=== PATIENT | female | born 1995 | race American Indian/Alaskan Native ===

== ENCOUNTER 2020-12-19 18:25 | Emergency (ER) | payer BC ==
[~2020-12-19] VITALS: Ht 157.5 cm; Wt 80.8 kg
[2020-12-19 19:07] LABS: URINE HCG NEGATIVE (NEG)
[2020-12-19 19:11] LABS: BASOPHILS # (AUTO) 0.1 X10'3 (0-0.2); BASOPHILS % (AUTO) 0.8 % (0-1); EOSINOPHILS # (AUTO) 0.3 X10'3 (0-0.9); EOSINOPHILS % (AUTO) 4.1 % (0-6); HEMOGLOBIN 14.6 g/dl (12.0-16.0); LYMPHOCYTES # (AUTO) 2.2 X10'3 (1.1-4.8); LYMPHOCYTES % (AUTO) 29.2 % (21-51); MEAN CORPUSCULAR HEMOGLOBIN 27.5 PG (27.0-31.0); MEAN CORPUSCULAR HGB CONC 33.1 g/dL (33.0-36.5); MEAN CORPUSCULAR VOLUME 83.2 FL (78-98); MEAN PLATELET VOLUME 7.7 FL (7.4-10.4); MONOCYTES # (AUTO) 0.5 X10'3 (0-0.9); MONOCYTES % (AUTO) 6.2 % (2-12); NEUTROPHILS # (AUTO) 4.5 X10'3 (1.8-7.7); NEUTROPHILS % (AUTO) 59.7 % (42-75); PLATELET COUNT 334 X10'3 (140-440); RED CELL DISTRIBUTION WIDTH 14.2 % (11.5-14.5); WHITE BLOOD COUNT 7.5 X10'3 (4.5-11.0)
[2020-12-19 19:13] LABS: ALANINE AMINOTRANSFERASE 97 U/L (12-78); ALBUMIN 3.8 G/DL (3.4-5.0); ALBUMIN/GLOBULIN RATIO 0.9 (1.1-1.5); ALKALINE PHOSPHATASE 118 IU/L (46-116); ANION GAP 10 (8-16); ASPARTATE AMINO TRANSFERASE 58 U/L (10-37); BILIRUBIN,TOTAL 0.4 MG/DL (0.1-1.0); BLOOD UREA NITROGEN 15 MG/DL (7-18); BUN/CREATININE RATIO 14.9 (6.6-38.0); CALCIUM 8.7 MG/DL (8.5-10.1); CHLORIDE 104 MMOL/L (99-107); CREATININE 1.01 MG/DL (0.40-0.90); GLUCOSE 104 MG/DL (70-104); LIPASE 77 U/L (73-393); POTASSIUM 3.6 MMOL/L (3.5-5.1); SODIUM 140 MMOL/L (135-145); TOTAL PROTEIN 7.9 G/DL (6.4-8.2); eGFR 66 ML/MIN
[2020-12-19 19:13] LABS: CLARITY,URINE CLEAR (Clear); COLOR,URINE YELLOW (Yellow); GLUCOSE, URINE NEGATIVE (Neg); KETONES,URINE NEGATIVE (Neg); LEUKOCYTE ESTERASE ,URINE NEGATIVE (Neg); NITRITES, URINE NEGATIVE (Neg); OCCULT BLOOD,URINE MODERATE (Neg); PROTEIN,URINE 30 mg/dl (Neg)
[2020-12-19 19:28] LABS: UA COLLECTION TYPE CLN CATCH MIDSTREAM
[2020-12-19 19:29] LABS: BACTERIA,URINE NONE SEEN /HPF (Neg); RBC,URINE 0-2 /HPF (0-2); SQUAMOUS EPITHELIAL CELL,UR MODERATE /LPF (FEW); WBC,URINE NONE SEEN /HPF (0-4)
[2020-12-19] MEDS ORDERED: ondansetron 4mg rapidly disintigrating tab PO ONE (19:35)
[2020-12-19] MEDS ORDERED: ketorolac tromethamine 15mg/ml inj. IM ONE (19:35)
[2020-12-19 21:48] VITALS: BP 125/86
[2020-12-20] MEDS ORDERED: NO HOME MEDS (09:10)
[2020-12-20] MEDS ORDERED: sevoflurane 250ml liquid IH ONE (13:08)
[2020-12-20] MEDS ORDERED: fentaNYL/PF 50MCG/1 ML 2ML syringe ONE (13:10)
[2020-12-20] MEDS ORDERED: midazolam 2 mg/2 ml injection ONE (13:10)
[2020-12-20] MEDS ORDERED: propofol inj 20 ML IV ONE (13:11)
[2020-12-20] MEDS ORDERED: rocuronium 10mg/ml inj IV ONE (13:11)
[2020-12-20] MEDS ORDERED: ondansetron/PF 4mg/2ml inj ONE (14:13)
[2020-12-20] MEDS ORDERED: dexamethasone sod phosphate 4mg/ml inj. ONE (14:13)
[2020-12-20] MEDS ORDERED: neostigmine methylsulfate 1 MG/ML 10ml vial ONE (14:20)
[2020-12-20] MEDS ORDERED: glycopyrrolate 0.2mg/ml inj ONE (14:20)
[2020-12-20] MEDS ORDERED: meperidine/PF 25mg/ml syringe ONE (15:40)
== END 2020-12-19 21:49 | disposition home or self-care (01) ==
LOC: ER 18:25
DX: K80.20 Calculus of gallbladder without cholecystitis without obstruction (principal); R11.0 Nausea; R10.11 Right upper quadrant pain
CPT/HCPCS: 36415; 76700; 80053; 81001; 81025; 83690; 85025; 96372; 99284; J1885; J1100; J2175; J2250; J2405; J2704; J2710; J3010; J3490

== ENCOUNTER 2020-12-20 06:00 | Inpatient (IN) | payer BC ==
[~2020-12-20] VITALS: Ht 157.5 cm; Wt 77.8 kg
[2020-12-20] VITALS (17 sets, daily range): BP systolic 122–161; BP diastolic 62–101
[2020-12-20 07:20] LABS: CLARITY,URINE CLOUDY (Clear); COLOR,URINE YELLOW (Yellow); GLUCOSE, URINE NEGATIVE (Neg); KETONES,URINE NEGATIVE (Neg); LEUKOCYTE ESTERASE ,URINE NEGATIVE (Neg); NITRITES, URINE NEGATIVE (Neg); OCCULT BLOOD,URINE LARGE (Neg); PROTEIN,URINE 30 mg/dl (Neg)
[2020-12-20] MEDS ORDERED: piperacillin/tazo 3.375gm/50ml 50 ML IV ONE (07:20)
[2020-12-20] MEDS ORDERED: normal saline 1000ML IV soln IVB ONE (07:20)
[2020-12-20] MEDS ORDERED: normal saline 1000ml 1,000 ML IV ONE (07:20)
[2020-12-20 07:21] LABS: BASOPHILS % (AUTO) 0.5 % (0-1); EOSINOPHILS # (AUTO) 0.1 X10'3 (0-0.9); EOSINOPHILS % (AUTO) 1.3 % (0-6); HEMATOCRIT 43.6 % (35.0-45.0); HEMOGLOBIN 14.7 g/dl (12.0-16.0); LYMPHOCYTES # (AUTO) 0.8 X10'3 (1.1-4.8); LYMPHOCYTES % (AUTO) 11.9 % (21-51); MEAN CORPUSCULAR HEMOGLOBIN 28.1 PG (27.0-31.0); MEAN CORPUSCULAR HGB CONC 33.6 g/dL (33.0-36.5); MEAN CORPUSCULAR VOLUME 83.8 FL (78-98); MEAN PLATELET VOLUME 7.7 FL (7.4-10.4); MONOCYTES # (AUTO) 0.5 X10'3 (0-0.9); MONOCYTES % (AUTO) 6.8 % (2-12); NEUTROPHILS # (AUTO) 5.6 X10'3 (1.8-7.7); NEUTROPHILS % (AUTO) 79.5 % (42-75); PLATELET COUNT 336 X10'3 (140-440); RED BLOOD COUNT 5.21 X10'6 (4.20-5.60); RED CELL DISTRIBUTION WIDTH 14.4 % (11.5-14.5); WHITE BLOOD COUNT 7.1 X10'3 (4.5-11.0)
[2020-12-20 07:22] LABS: UA COLLECTION TYPE CLN CATCH MIDSTREAM
[2020-12-20 07:23] LABS: URINE HCG NEGATIVE (NEG)
[2020-12-20 07:26] LABS: MUCUS STRANDS MODERATE /LPF (Neg); SQUAMOUS EPITHELIAL CELL,UR MODERATE /LPF (FEW)
[2020-12-20 07:27] LABS: BACTERIA,URINE 1+ /HPF (Neg); RBC,URINE 50-100 /HPF (0-2); WBC,URINE 0-4 /HPF (0-4)
[2020-12-20 07:33] LABS: ALANINE AMINOTRANSFERASE 919 U/L (12-78); ALBUMIN 3.8 G/DL (3.4-5.0); ALKALINE PHOSPHATASE 187 IU/L (46-116); ANION GAP 8 (8-16); ASPARTATE AMINO TRANSFERASE 851 U/L (10-37); BILIRUBIN,TOTAL 1.7 MG/DL (0.1-1.0); BLOOD UREA NITROGEN 14 MG/DL (7-18); BUN/CREATININE RATIO 14.6 (6.6-38.0); CALCIUM 8.7 MG/DL (8.5-10.1); CHLORIDE 106 MMOL/L (99-107); CREATININE 0.96 MG/DL (0.40-0.90); GLUCOSE 104 MG/DL (70-104); LIPASE 92 U/L (73-393); POTASSIUM 4.2 MMOL/L (3.5-5.1); SODIUM 140 MMOL/L (135-145); TOTAL CARBON DIOXIDE 25.9 MMOL/L (24-32); TOTAL PROTEIN 7.8 G/DL (6.4-8.2); eGFR 70 ML/MIN
[2020-12-20] MEDS ORDERED: mag hydrox/Alum hydrox/simeth 30ml oral suspension PO PRN (08:10)
[2020-12-20] MEDS ORDERED: morphine 2 MG/ML inj. syringe IV PRN ×2 (08:10→13:40)
[2020-12-20] MEDS ORDERED: diphenhydrAMINE 25mg capsule PO PRN (08:10)
[2020-12-20] MEDS ORDERED: magnesium Cl slow-release 64mg tablet PO PRN (08:10)
[2020-12-20] MEDS: normal saline 1000ml 1,000 ML IV SCH ×3 (08:10→19:47)
[2020-12-20] MEDS ORDERED: bisacodyl 10mg suppository rectal RC PRN (08:10)
[2020-12-20] MEDS ORDERED: ondansetron/PF 4mg/2ml inj IV PRN ×2 (08:10→13:40)
[2020-12-20] MEDS ORDERED: potassium Cl 40MEQ/1/2NS 520ml 520 ML IV PRN ×2 (08:10)
[2020-12-20] MEDS ORDERED: acetaminophen 650mg rectal suppository RC PRN (08:10)
[2020-12-20] MEDS ORDERED: magnesium 2GM in 50ml NS 50 ML IV PRN (08:10)
[2020-12-20] MEDS ORDERED: magnesium 4gm in 100ml NS 100 ML IV PRN (08:10)
[2020-12-20] MEDS ORDERED: magnesium hydroxide 30ml (MOM) UD suspension PO PRN (08:10)
[2020-12-20] MEDS ORDERED: potassium Cl 20 mEq SR tablet PO PRN (08:10)
[2020-12-20] MEDS ORDERED: HYDROcodone/acetaminophen 5mg/325mg tablet PO PRN (08:10)
[2020-12-20] MEDS ORDERED: acetaminophen 325mg tablet PO PRN ×2 (08:10)
[2020-12-20 08:39] LABS: HEMOGLOBIN A1C 5.5 % (4.5-6.2)
[2020-12-20] MEDS ORDERED: NO HOME MEDS (09:10)
[2020-12-20] MEDS ORDERED: BUPIVAcaine/PF 2.5 mg/ml (0.25%) 30ml vial ONE (11:07)
[2020-12-20] MEDS ORDERED: ceFOXitin 2GM-NS 50mL ADDVANT. 50 ML IV ONE (13:15)
[2020-12-20] MEDS ORDERED: ceFAZolin 1000mg inj ONE (13:33)
[2020-12-20] MEDS ORDERED: proCHLORperazine 10 MG/2 ml inj IV PRN (13:40)
[2020-12-20] MEDS ORDERED: morphine 4 MG/ML inj SYRINge IV PRN (13:40)
[2020-12-20] MEDS ORDERED: meperidine/PF 25mg/ml syringe IV PRN ×3 (13:40)
[2020-12-20] MEDS ORDERED: ringers solution, lacted 1,000 ML IV SCH (13:40)
--- NOTE | 2020-12-20 14:45 | NUR ---
Received from OR via BED , accompanied by Anesthesiologist DR GOTTI and report given by Anesthesiolgist. PATIENT WAKING UP, DENIES PAIN, V/S WNL, CSM INTACT, BANDAIDS TO ABDOMEN CDI. SCD ON. 20G PIV RUE
[2020-12-20] MEDS: piperacillin/tazo 3.375gm/50ml 50 ML IV SCH (16:00)
--- NOTE | 2020-12-20 16:05 | NUR ---
PATIENT SLEEPY BUT AWAKE AND ORIENTED X4, DENIES PAIN, V/S WNL, CSM INTACT, BANDAIDS TO ABDOMEN CDI. SCD ON. 20G PIV RUE. TAKEN TO 347A WITH ALL BELONGING S AND HOOKED UP TO MONIORS IN ROOM AND REPORT GIVEN TO [employer] WHO HAS TAKEN OVER PATIENT CARE.
[2020-12-20] MEDS: morphine 2 MG/ML inj. syringe IV PRN (18:00)
--- NOTE | 2020-12-20 18:36 | NUR ---
Problems reprioritized. Patient report given, questions answered & plan of care reviewed with BANG Morejon.
--- NOTE | 2020-12-20 18:36 | NUR ---
Patient in room [facility]. I have received report from DOMI CUENCA and had the opportunity to ask questions and assume patient care.
[2020-12-20] MEDS: heparin, porcine 5000 units/ml vial SQ SCH (19:47)
[2020-12-20] MEDS: K and/or MAG REPLACEMENT MC SCH (19:55)
[2020-12-21] VITALS: BP 131/71
[2020-12-21] MEDS: piperacillin/tazo 3.375gm/50ml 50 ML IV SCH ×3 (00:51→15:35)
[2020-12-21] MEDS: morphine 2 MG/ML inj. syringe IV PRN ×4 (03:03→20:14)
[2020-12-21 04:08] VITALS: BP 119/73
--- NOTE | 2020-12-21 06:15 | NUR ---
Problems reprioritized. Patient report given, questions answered & plan of care reviewed with DOMI CUENCA.
--- NOTE | 2020-12-21 06:26 | NUR ---
Patient in room [facility]. I have received report from BANG Morejon and had the opportunity to ask questions and assume patient care.
[2020-12-21 06:34] LABS: BASOPHILS % (AUTO) 0.2 % (0-1); EOSINOPHILS % (AUTO) 0 % (0-6); HEMATOCRIT 38.3 % (35.0-45.0); LYMPHOCYTES # (AUTO) 1.1 X10'3 (1.1-4.8); LYMPHOCYTES % (AUTO) 13.8 % (21-51); MEAN CORPUSCULAR HEMOGLOBIN 28.1 PG (27.0-31.0); MEAN CORPUSCULAR VOLUME 82.8 FL (78-98); MEAN PLATELET VOLUME 7.9 FL (7.4-10.4); MONOCYTES # (AUTO) 0.6 X10'3 (0-0.9); MONOCYTES % (AUTO) 7.4 % (2-12); NEUTROPHILS # (AUTO) 6.4 X10'3 (1.8-7.7); NEUTROPHILS % (AUTO) 78.6 % (42-75); PLATELET COUNT 307 X10'3 (140-440); RED BLOOD COUNT 4.63 X10'6 (4.20-5.60); RED CELL DISTRIBUTION WIDTH 14.6 % (11.5-14.5); WHITE BLOOD COUNT 8.1 X10'3 (4.5-11.0)
[2020-12-21 06:55] LABS: ALANINE AMINOTRANSFERASE 849 U/L (12-78); ALBUMIN/GLOBULIN RATIO 0.8 (1.1-1.5); ALKALINE PHOSPHATASE 193 IU/L (46-116); ANION GAP 10 (8-16); ASPARTATE AMINO TRANSFERASE 396 U/L (10-37); BILIRUBIN,TOTAL 2.9 MG/DL (0.1-1.0); BLOOD UREA NITROGEN 6 MG/DL (7-18); BUN/CREATININE RATIO 8.8 (6.6-38.0); CALCIUM 8.1 MG/DL (8.5-10.1); CHLORIDE 106 MMOL/L (99-107); CHOL/HDL RATIO 2.1 (0.00-4.99); CHOLESTEROL 121 MG/DL (0-200); CREATININE 0.68 MG/DL (0.40-0.90); GLUCOSE 114 MG/DL (70-104); HDL CHOLESTEROL 57 MG/DL (35-60); LDL CHOLESTEROL 59 MG/DL (50-100); MAGNESIUM 1.9 MG/DL (1.5-2.4); POTASSIUM 3.7 MMOL/L (3.5-5.1); SODIUM 139 MMOL/L (135-145); TOTAL CARBON DIOXIDE 23.4 MMOL/L (24-32); TOTAL PROTEIN 6.6 G/DL (6.4-8.2); TRIGLYCERIDES 80 MG/DL (20-135); eGFR > 90 ML/MIN
[2020-12-21 07:00] VITALS: BP 126/74
[2020-12-21] MEDS: K and/or MAG REPLACEMENT MC SCH ×2 (07:09→19:58)
[2020-12-21] MEDS: heparin, porcine 5000 units/ml vial SQ SCH ×2 (08:02→20:18)
[2020-12-21] MEDS: normal saline 1000ml 1,000 ML IV SCH ×2 (10:06→20:16)
[2020-12-21 11:19] VITALS: BP 128/87
[2020-12-21] MEDS ORDERED: AMOX-419 PO (12:02)
[2020-12-21] MEDS ORDERED: LACT1CAP55 PO (12:02)
[2020-12-21] MEDS ORDERED: HYDR-3965 PO (12:02)
[2020-12-21 18:00] VITALS: BP 120/77
--- NOTE | 2020-12-21 18:03 | NUR ---
Problems reprioritized. Patient report given, questions answered & plan of care reviewed with BANG Morejon.
--- NOTE | 2020-12-21 18:40 | NUR ---
Patient in room [facility]. I have received report from DOMI CUENCA and had the opportunity to ask questions and assume patient care.
[2020-12-21] MEDS: lactobacillus rhamnosus 10,000 MMU CELLS/CAPSULE PO SCH (20:17)
[2020-12-22] VITALS (16 sets, daily range): BP systolic 112–165; BP diastolic 67–108
[2020-12-22] MEDS: morphine 2 MG/ML inj. syringe IV PRN ×4 (00:29→13:44)
[2020-12-22] MEDS: piperacillin/tazo 3.375gm/50ml 50 ML IV SCH ×3 (00:33→16:22)
[2020-12-22] MEDS: HYDROcodone/acetaminophen 10/325mg tab PO PRN ×2 (03:35→07:49)
[2020-12-22 06:23] LABS: BASOPHILS % (AUTO) 0.7 % (0-1); EOSINOPHILS # (AUTO) 0.1 X10'3 (0-0.9); EOSINOPHILS % (AUTO) 2.1 % (0-6); HEMOGLOBIN 12.6 g/dl (12.0-16.0); LYMPHOCYTES # (AUTO) 1.3 X10'3 (1.1-4.8); LYMPHOCYTES % (AUTO) 18.5 % (21-51); MEAN CORPUSCULAR HEMOGLOBIN 27.7 PG (27.0-31.0); MEAN PLATELET VOLUME 7.9 FL (7.4-10.4); MONOCYTES # (AUTO) 0.6 X10'3 (0-0.9); MONOCYTES % (AUTO) 8.5 % (2-12); NEUTROPHILS # (AUTO) 4.7 X10'3 (1.8-7.7); NEUTROPHILS % (AUTO) 70.2 % (42-75); PLATELET COUNT 279 X10'3 (140-440); RED BLOOD COUNT 4.53 X10'6 (4.20-5.60); RED CELL DISTRIBUTION WIDTH 14.6 % (11.5-14.5); WHITE BLOOD COUNT 6.8 X10'3 (4.5-11.0)
--- NOTE | 2020-12-22 06:31 | NUR ---
Problems reprioritized. Patient report given, questions answered & plan of care reviewed with ANDREIA CUENCA.
--- NOTE | 2020-12-22 06:32 | NUR ---
Patient in room [facility]. I have received report from BANG Morejon and had the opportunity to ask questions and assume patient care.
[2020-12-22 06:49] LABS: ALANINE AMINOTRANSFERASE 675 U/L (12-78); ALBUMIN/GLOBULIN RATIO 0.8 (1.1-1.5); ALKALINE PHOSPHATASE 182 IU/L (46-116); ANION GAP 9 (8-16); ASPARTATE AMINO TRANSFERASE 186 U/L (10-37); BILIRUBIN,TOTAL 2.9 MG/DL (0.1-1.0); BLOOD UREA NITROGEN 5 MG/DL (7-18); CALCIUM 8.1 MG/DL (8.5-10.1); CHLORIDE 104 MMOL/L (99-107); CREATININE 0.84 MG/DL (0.40-0.90); GLUCOSE 87 MG/DL (70-104); MAGNESIUM 1.9 MG/DL (1.5-2.4); PHOSPHORUS 2.6 MG/DL (2.3-4.5); POTASSIUM 3.4 MMOL/L (3.5-5.1); SODIUM 138 MMOL/L (135-145); TOTAL CARBON DIOXIDE 25.5 MMOL/L (24-32); TOTAL PROTEIN 6.6 G/DL (6.4-8.2); eGFR 82 ML/MIN
[2020-12-22] MEDS: potassium Cl 20 mEq SR tablet PO PRN ×2 (07:30→19:39)
[2020-12-22] MEDS: lactobacillus rhamnosus 10,000 MMU CELLS/CAPSULE PO SCH ×2 (07:30→19:39)
[2020-12-22] MEDS: normal saline 1000ml 1,000 ML IV SCH ×2 (07:38→20:10)
[2020-12-22] MEDS: heparin, porcine 5000 units/ml vial SQ SCH ×2 (08:00→19:40)
[2020-12-22] MEDS: K and/or MAG REPLACEMENT MC SCH ×2 (08:00→20:00)
--- NOTE | 2020-12-22 10:16 | NUR ---
Patient down to GI lab.
[2020-12-22] MEDS ORDERED: LIDOcaine Viscous 15ml cup ONE (11:12)
[2020-12-22] MEDS ORDERED: glucagon, human recombinant 1mg kit ONE ×2 (11:12)
[2020-12-22] MEDS ORDERED: fentaNYL/PF 50MCG/1 ML 2ML syringe ONE ×2 (11:12→11:13)
[2020-12-22] MEDS ORDERED: MIDAZolam 5mg/5ml vial ONE (11:12)
[2020-12-22] MEDS ORDERED: iohexol 300 MG/1 ML 50ml polymer ONE (11:13)
--- NOTE | 2020-12-22 13:22 | NUR ---
Patient returned to room 347A in wheelchair accompanied by BANG Hope. Patient ambulated independently to and from bathroom.
--- NOTE | 2020-12-22 14:25 | NUR ---
Problems reprioritized. Patient report given, questions answered & plan of care reviewed with BANG FRANCES.
--- NOTE | 2020-12-22 14:25 | NUR ---
Patient in room [facility]. I have received report from BANG BOSWELL and had the opportunity to ask questions and assume patient care.
--- NOTE | 2020-12-22 18:26 | NUR ---
Problems reprioritized. Patient report given, questions answered & plan of care reviewed with BANG HERNANDEZ.
--- NOTE | 2020-12-22 18:30 | NUR ---
Patient in room [facility]. I have received report from Joyce CUENCA and had the opportunity to ask questions and assume patient care.
[2020-12-23] VITALS: BP 114/72
[2020-12-23] MEDS: piperacillin/tazo 3.375gm/50ml 50 ML IV SCH ×2 (00:30→07:08)
[2020-12-23] MEDS: normal saline 1000ml 1,000 ML IV SCH ×2 (06:13→07:12)
--- NOTE | 2020-12-23 06:19 | NUR ---
Patient in room [facility]. I have received report from BANG HERNANDEZ and had the opportunity to ask questions and assume patient care.
[2020-12-23 06:39] LABS: ALANINE AMINOTRANSFERASE 505 U/L (12-78); ALBUMIN 2.9 G/DL (3.4-5.0); ALBUMIN/GLOBULIN RATIO 0.9 (1.1-1.5); ALKALINE PHOSPHATASE 169 IU/L (46-116); ANION GAP 8 (8-16); ASPARTATE AMINO TRANSFERASE 113 U/L (10-37); BILIRUBIN,TOTAL 1.4 MG/DL (0.1-1.0); BLOOD UREA NITROGEN 6 MG/DL (7-18); BUN/CREATININE RATIO 8.7 (6.6-38.0); CALCIUM 8.5 MG/DL (8.5-10.1); CHLORIDE 107 MMOL/L (99-107); CREATININE 0.69 MG/DL (0.40-0.90); GLUCOSE 77 MG/DL (70-104); MAGNESIUM 1.9 MG/DL (1.5-2.4); POTASSIUM 3.6 MMOL/L (3.5-5.1); SODIUM 141 MMOL/L (135-145); TOTAL CARBON DIOXIDE 25.7 MMOL/L (24-32); TOTAL PROTEIN 6.3 G/DL (6.4-8.2); eGFR > 90 ML/MIN
[2020-12-23 06:41] LABS: BASOPHILS % (AUTO) 0.7 % (0-1); EOSINOPHILS # (AUTO) 0.3 X10'3 (0-0.9); EOSINOPHILS % (AUTO) 4.4 % (0-6); HEMATOCRIT 35.2 % (35.0-45.0); LYMPHOCYTES # (AUTO) 1.6 X10'3 (1.1-4.8); LYMPHOCYTES % (AUTO) 26.9 % (21-51); MEAN CORPUSCULAR HEMOGLOBIN 28.3 PG (27.0-31.0); MEAN CORPUSCULAR HGB CONC 34.1 g/dL (33.0-36.5); MEAN CORPUSCULAR VOLUME 83.1 FL (78-98); MEAN PLATELET VOLUME 7.8 FL (7.4-10.4); MONOCYTES # (AUTO) 0.5 X10'3 (0-0.9); MONOCYTES % (AUTO) 7.9 % (2-12); NEUTROPHILS # (AUTO) 3.6 X10'3 (1.8-7.7); NEUTROPHILS % (AUTO) 60.1 % (42-75); PLATELET COUNT 258 X10'3 (140-440); RED BLOOD COUNT 4.24 X10'6 (4.20-5.60); RED CELL DISTRIBUTION WIDTH 14.3 % (11.5-14.5); WHITE BLOOD COUNT 6.1 X10'3 (4.5-11.0)
[2020-12-23 06:57] VITALS: BP 117/66
[2020-12-23] MEDS: lactobacillus rhamnosus 10,000 MMU CELLS/CAPSULE PO SCH (07:08)
[2020-12-23] MEDS: heparin, porcine 5000 units/ml vial SQ SCH (07:13)
[2020-12-23] MEDS: K and/or MAG REPLACEMENT MC SCH (07:14)
--- NOTE | 2020-12-23 12:17 | NUR ---
Patient is A&O with no complaints at this time. Discussed with patient discharge instructions and new prescriptions. Patient states she has no questions at this time regarding discharge teaching. Patient IV dc'd and ready for dc. She is waiting for arrival for transport home.
--- NOTE | 2020-12-23 12:48 | NUR ---
Patient dc'd home with all personal belongings.
== END 2020-12-23 12:33 | disposition home or self-care (01) | DRG 419 ==
LOC: ER 06:01 → ED HOLD 08:08 → SUR 3N 16:05
PROVIDERS: ADMIT Family Medicine; ATTEND Family Medicine
PROC: 0FT44ZZ Resection of Gallbladder, Percutaneous Endoscopic Approach (ICD-10-PCS; principal; 2020-12-20 13:08)
PROC: 0FC98ZZ Extirpation of Matter from Common Bile Duct, Via Natural or Artificial Opening Endoscopic (ICD-10-PCS; 2020-12-22)
DX: K80.64 Calculus of gallbladder and bile duct with chronic cholecystitis without obstruction (principal); R74.01 Elevation of levels of liver transaminase levels; E66.9 Obesity, unspecified; R74.8 Abnormal levels of other serum enzymes; Z20.822 Contact with and (suspected) exposure to COVID-19; K82.8 Other specified diseases of gallbladder; R79.89 Other specified abnormal findings of blood chemistry; Z98.891 History of uterine scar from previous surgery; Z68.31 Body mass index [BMI] 31.0-31.9, adult
CPT/HCPCS: 43262; 43264; 99285; Z7506; Z7508; 36415; 74181; 80053; 80061; 81001; 81025; 83036; 83690; 83735; 84100; 85025; 87081; 87635; 99152; A4215; A4618; A4620; A7000; C1769; G0378; J0690; J0694; J1610; J1644; J2175; J2250; J2270; J2405; J2543; J3010; J3490; J7030; J7040; J7120; Q9967

== ENCOUNTER 2022-12-01 19:16 | Emergency (ER) | payer OTHER ==
[~2022-12-01] VITALS: Ht 160 cm; Wt 88.6 kg
[~2022-12-01 19:16] MED LIST: LACT1CAP55 PO
[2022-12-01 20:33] VITALS: BP 132/89
[2022-12-01] MEDS ORDERED: ketorolac trometh inj. 60 MG/2 ML VIAL IM ONE (21:40)
[2022-12-01] MEDS ORDERED: cyclobenzaprine 10mg tablet PO ONE (21:40)
[2022-12-01] MEDS ORDERED: CYCL-1 PO (22:14)
[2022-12-01] MEDS ORDERED: IBUP-1984 PO (22:14)
== END 2022-12-01 22:27 | disposition home or self-care (01) ==
LOC: ER 19:17
DX: M54.2 Cervicalgia (principal); M54.50 Low back pain, unspecified; V87.7XXA Person injured in collision between other specified motor vehicles (traffic), initial encounter; Y93.89 Activity, other specified; Y92.488 Other paved roadways as the place of occurrence of the external cause; Y99.8 Other external cause status
CPT/HCPCS: 73000; 96372; 99283; J1885